=== PATIENT | female | born 1940 | race Caucasian/White ===

== ENCOUNTER 2023-06-25 13:45 | Emergency (ER) | payer MEDICARE ==
[~2023-06-25] VITALS: Ht 154.9 cm; Wt 55.5 kg
[2023-06-25] MEDS ORDERED: VITA200012 PO (13:54)
[2023-06-25] MEDS ORDERED: LEVO75TA4 PO (13:54)
[2023-06-25] MEDS ORDERED: MUCI600T31 PO (14:30)
[2023-06-25] MEDS ORDERED: AMOX875T2 PO (14:30)
[2023-06-25] MEDS ORDERED: FLON27.5 NARES (14:30)
[2023-06-25 14:38] VITALS: BP 122/58; TEMP 96.5; O2SAT 96
[2023-06-25] MEDS: AUGMENTIN 875 MG TAB PO ONE (14:38)
== END 2023-06-25 14:45 | disposition home or self-care (01) ==
LOC: M ED 14:14
DX: H66.92 Otitis media, unspecified, left ear (principal); J06.9 Acute upper respiratory infection, unspecified; Z79.2 Long term (current) use of antibiotics; Z79.899 Other long term (current) drug therapy